=== PATIENT | male | born 1975 | race African-American/Black ===

== ENCOUNTER 2019-04-17 09:47 | Emergency (ER) | payer SELFPAY | END 2019-04-17 10:46 | disposition home or self-care (01) | LOC: ERS 09:47 | DX: M25.474 Effusion, right foot (principal) ==

== ENCOUNTER 2019-04-22 09:52 | Emergency (ER) | payer SELFPAY | END 2019-04-22 11:35 | disposition home or self-care (01) | LOC: ERS 09:52 | DX: M79.671 Pain in right foot (principal) | CPT/HCPCS: 99283 ==

== ENCOUNTER 2019-04-29 18:36 | Emergency (ER) | payer SELFPAY ==
[2019-04-29] MEDS ORDERED: Ketorolac Tromethamine 30 MG/ML VIAL ONE (19:35)
== END 2019-04-29 19:59 | disposition home or self-care (01) ==
LOC: ERS 18:36
DX: M54.9 Dorsalgia, unspecified (principal)
CPT/HCPCS: 96372; 99283; J1885